=== PATIENT | male | born 1995 | race Caucasian/White ===

== ENCOUNTER → 2017-04-08 | Outpatient (CLI) | payer OTHER ==
--- NOTE | 2017-04-08 16:37 | REP ---
LUMBAR SPINE COMPLETE: 04/08/2017. COMPARISON: None. FINDINGS: Five views are provided. There is very slight levoconvex curve of the upper lumbar spine. Pedicles, spinous and transverse processes intact. SI joints, sacral ala and foramina were intact. Lateral view shows loss of lordosis which may reflect some spasm. There is spondylosis with anterior osteophytes at L1-2 and lower thoracic levels compression deformity of destructive lesion. No spondylolysis or spondylolisthesis. IMPRESSION: 1. Minor degenerative disc changes with tiny spurs at L1-2 without disc space narrowing, compression deformity, spondylolysis or spondylolisthesis. 2. Straightening of the spine may reflect some mild spasm. Signed by Gregorio Lan MD 04/08/2017 04:46 P
== END ==
LOC: M ADAMS 15:28
PROVIDERS: ATTEND Physician Assistant Medical
DX: M54.5 Low back pain (principal)

== ENCOUNTER → 2020-07-31 | Outpatient (REF) | payer OTHER | LOC: M LAB 21:59 | PROVIDERS: ATTEND Physician Assistant Medical | DX: Z11.52 Encounter for screening for COVID-19 (principal) ==

== ENCOUNTER 2022-07-04 22:08 | Emergency (ER) | payer OTHER ==
[~2022-07-04] VITALS: Ht 177.8 cm; Wt 161.6 kg
[2022-07-04 22:09] VITALS: BP 160/90
[2022-07-04] MEDS ORDERED: OXYC1TAB23 PO (22:20)
[2022-07-04] MEDS ORDERED: OMEP40CA5 PO (22:20)
[2022-07-04] MEDS ORDERED: BUPR300T92 PO (22:20)
[2022-07-04] MEDS ORDERED: GABA-282 PO (22:20)
[2022-07-04] MEDS ORDERED: IBUP1TAB6 PO (22:20)
== END 2022-07-05 02:06 | disposition left against medical advice (07) ==
LOC: M ED 22:08
DX: Z53.21 Procedure and treatment not carried out due to patient leaving prior to being seen by health care provider (principal)

== ENCOUNTER → 2023-10-12 | Outpatient (CLI) | payer OTHER ==
[~2023-10-12] MED LIST: BUPR300T92 PO; GABA-282 PO; IBUP1TAB6 PO; OMEP40CA5 PO; OXYC1TAB23 PO
== END ==
LOC: M PLAIMG 09:17
PROVIDERS: ATTEND Physician Assistant
DX: M54.50 Low back pain, unspecified (principal); M48.00 Spinal stenosis, site unspecified

== ENCOUNTER → 2023-12-02 | Outpatient (REF) | payer OTHER ==
[~2023-12-02] MED LIST changes: +BUPR-597 PO; -BUPR300T92 PO
[2023-12-02 19:45] LABS: ALBUMIN 3.6 G/DL (3.2-5.2); ALKALINE PHOSPHATASE 97 U/L (46-116); ALT/SGPT 79 U/L (7.0-40); AST/SGOT 53 U/L (<34); BILIRUBIN,TOTAL 1.1 MG/DL (0.3-1.2); BLOOD UREA NITROGEN 15 MG/DL (9-23); CALCIUM LEVEL 8.7 MG/DL (8.5-10.1); CARBON DIOXIDE LEVEL 27 MMOL/L (20-31); CHLORIDE LEVEL 105 MMOL/L (98-107); CHOLESTEROL LEVEL 217 MG/DL (<200); CREATININE FOR GFR 0.68 MG/DL (0.70-1.30); GLOMERULAR FILTRATION RATE > 60.0 (>60); GLUCOSE, FASTING 127 MG/DL (60-100); HDL CHOLESTEROL 47.1 MG/DL (>40); LDL CHOLESTEROL 142.5 MG/DL (<100); NON-HDL-C 169.9 MG/DL; POTASSIUM SERUM 4.2 MMOL/L (3.5-5.1); SODIUM LEVEL 139 MMOL/L (136-145); TOTAL PROTEIN 7.2 G/DL (5.7-8.2); TRIGLYCERIDES LEVEL 137 MG/DL (<150)
[2023-12-02 19:47] LABS: THYROID STIMULATING HORMONE 2.141 uIU/ML (0.55-4.78); TOTAL 25(OH) VITAMIN D 8.6 NG/ML (20.0-100.0)
[2023-12-02 20:17] LABS: HIV 1&2 SCREEN NEGATIVE (NEGATIVE)
[2023-12-02 20:25] LABS: HEPATITIS C VIRUS ABY INDEX < 0.02 INDEX (<0.8)
[2023-12-02 20:43] LABS: HEMOGLOBIN A1c 6.6 % (4.0-6.0)
[2023-12-02 21:28] LABS: GC DNA AMPLIFICATION NEGATIVE (NEGATIVE)
[2023-12-02 21:49] LABS: Trichomonas vaginalis (AMP) NOT DETECTED (NEGATIVE)
== END ==
LOC: M LAB REF 16:19
PROVIDERS: ATTEND Physician Assistant
DX: Z11.9 Encounter for screening for infectious and parasitic diseases, unspecified (principal); E66.9 Obesity, unspecified; E55.9 Vitamin D deficiency, unspecified

== ENCOUNTER → 2024-02-18 | Outpatient (REF) | payer OTHER ==
[2024-02-19 15:07] LABS: CREATININE, URINE 369.6 MG/DL
== END ==
LOC: M LAB REF 12:16
PROVIDERS: ATTEND Nurse Practitioner Family
DX: E11.9 Type 2 diabetes mellitus without complications (principal)

== ENCOUNTER → 2024-03-16 | Outpatient (CLI) | payer OTHER | LOC: M PAIN 13:00 | PROVIDERS: ATTEND Anesthesiology | DX: M51.16 Intervertebral disc disorders with radiculopathy, lumbar region (principal); G89.29 Other chronic pain; K21.9 Gastro-esophageal reflux disease without esophagitis; E66.01 Morbid (severe) obesity due to excess calories; F43.23 Adjustment disorder with mixed anxiety and depressed mood; I10 Essential (primary) hypertension; E78.00 Pure hypercholesterolemia, unspecified; M47.816 Spondylosis without myelopathy or radiculopathy, lumbar region; E11.9 Type 2 diabetes mellitus without complications; E55.9 Vitamin D deficiency, unspecified; F17.210 Nicotine dependence, cigarettes, uncomplicated; Z79.899 Other long term (current) drug therapy ==

== ENCOUNTER → 2024-04-26 | Outpatient (CLI) | payer OTHER ==
[~2024-04-26] MED LIST changes: +GABA-1172 PO; -GABA-282 PO
== END ==
LOC: M WUC 11:11
PROVIDERS: ATTEND Nurse Practitioner Family
DX: R06.83 Snoring (principal)

== ENCOUNTER → 2024-05-05 | Outpatient (CLI) | payer OTHER ==
[~2024-05-05] MED LIST changes: +ISOVUE-M 300 61% 15ML VIAL As Ordered ONE; +LIDOCAINE 1% SDV 30ML VIAL As Ordered ONE; +dexAMETHasone 10MG/1ML VIAL PRES.FREE As Ordered ONE; +diazePAM 5MG TABLET As Ordered ONE; +oxyCODONE 5MG TAB As Ordered ONE
== END ==
LOC: M PAIN 14:30
PROVIDERS: ATTEND Anesthesiology
DX: M51.16 Intervertebral disc disorders with radiculopathy, lumbar region (principal); G89.29 Other chronic pain; E66.01 Morbid (severe) obesity due to excess calories; I10 Essential (primary) hypertension; E78.00 Pure hypercholesterolemia, unspecified; M47.816 Spondylosis without myelopathy or radiculopathy, lumbar region; E11.9 Type 2 diabetes mellitus without complications; E55.9 Vitamin D deficiency, unspecified; F17.210 Nicotine dependence, cigarettes, uncomplicated; Z68.43 Body mass index [BMI] 50.0-59.9, adult; Z79.811 Long term (current) use of aromatase inhibitors
CPT/HCPCS: 62323; J1100; Q9967

== ENCOUNTER → 2024-10-06 | Outpatient (CLI) | payer OTHER, MEDICAID ==
[~2024-10-06] MED LIST changes: -ISOVUE-M 300 61% 15ML VIAL As Ordered ONE; -LIDOCAINE 1% SDV 30ML VIAL As Ordered ONE; -dexAMETHasone 10MG/1ML VIAL PRES.FREE As Ordered ONE; -diazePAM 5MG TABLET As Ordered ONE; -oxyCODONE 5MG TAB As Ordered ONE
== END ==
LOC: M SLEEP 20:00
PROVIDERS: ATTEND Physician Assistant
DX: G47.33 Obstructive sleep apnea (adult) (pediatric) (principal)

== ENCOUNTER → 2024-12-04 | Outpatient (CLI) | payer OTHER ==
[~2024-12-04] MED LIST changes: -BUPR-597 PO; +BUPR-766 PO
== END ==
LOC: M SLEEP 20:00
PROVIDERS: ATTEND Physician Assistant
DX: G47.33 Obstructive sleep apnea (adult) (pediatric) (principal)

== ENCOUNTER 2025-03-09 11:55 | Emergency (ER) | payer OTHER ==
[~2025-03-09] VITALS: Ht 177.8 cm; Wt 146.1 kg
[2025-03-09] MEDS ORDERED: SEMA2PEN (12:18)
[2025-03-09 13:17] LABS: BASO # 0.0 10^3/uL (0.0-0.2); BASO % 0.2 % (0.0-1.0); EOS # 0.1 10^3/uL (0.0-0.5); EOS % 0.5 % (0.0-3.0); LYMPH # 1.4 10^3/uL (1.5-5.0); LYMPH % 11.9 % (24.0-44.0); MONO # 0.6 10^3/uL (0.0-0.8); MONO % 4.7 % (2.0-8.0); NEUTROPHILS # 9.9 10^3/uL (1.5-8.5); NEUTROPHILS % 82.3 % (36.0-66.0); PLATELET COUNT, AUTOMATED 273 10^3/uL (150-450)
[2025-03-09 13:18] LABS: KETONE, URINE AUTO RFX NEGATIVE (NEGATIVE); LEUKOCYTE ESTERASE UR AUTO RFX NEGATIVE (NEGATIVE); MUCUS, URINE RFX LARGE (NEGATIVE); NITRITE, URINE AUTO RFX NEGATIVE (NEGATIVE); RBC, URINE AUTO RFX TNTC /HPF (0-3); SQUAM EPITHELIAL CELL UR AURFX 1 /HPF (0-6); WBC, URINE AUTO RFX 0 /HPF (0-3)
[2025-03-09 13:52] LABS: ALT/SGPT 34 U/L (7.0-40); AST/SGOT 23 U/L (<34); CALCIUM LEVEL 9.2 MG/DL (8.5-10.1); CARBON DIOXIDE LEVEL 27 MMOL/L (20-31); CHLORIDE LEVEL 106 MMOL/L (98-107); CREATININE FOR GFR 1.11 MG/DL (0.70-1.30); GLOMERULAR FILTRATION RATE > 90.0 (>60); POTASSIUM SERUM 4.5 MMOL/L (3.5-5.1); SODIUM LEVEL 143 MMOL/L (136-145)
[2025-03-09] MEDS: ONDANSETRON 4MG 2ML VIAL IV ONE (14:07)
[2025-03-09] MEDS: NS (Normal Saline) 0.9% 1,000 ML IV ONE (14:07)
[2025-03-09] MEDS: KETOROLAC 30 MG/ML 1 ML VIAL IV ONE (14:08)
[2025-03-09] MEDS ORDERED: TAMS-18 PO (14:56)
[2025-03-09] MEDS ORDERED: ONDA-282 PO (15:01)
[2025-03-09] MEDS ORDERED: KETO-204 PO (15:01)
[2025-03-09 15:04] VITALS: BP 143/88; TEMP 98.4; O2SAT 97
== END 2025-03-09 15:13 | disposition home or self-care (01) ==
LOC: M ED 11:55
DX: N20.0 Calculus of kidney (principal); Z87.442 Personal history of urinary calculi; F17.200 Nicotine dependence, unspecified, uncomplicated; F19.10 Other psychoactive substance abuse, uncomplicated; Z79.899 Other long term (current) drug therapy
CPT/HCPCS: 74176; 80048; 80076; 81001; 83690; 85025; 96361; 96374; 96375; 99284; J1885; J2405

== ENCOUNTER 2025-07-19 09:29 | Emergency (ER) | payer OTHER ==
[~2025-07-19] VITALS: Ht 177.8 cm; Wt 146.8 kg
[~2025-07-19 09:29] MED LIST changes: -IBUP1TAB6 PO; +KETO-204 PO; +ONDA-282 PO; +SEMA2PEN; +SFHIBU600 PO; +TAMS-18 PO
[2025-07-19] MEDS ORDERED: METH-1165 PO (13:25)
[2025-07-19] MEDS ORDERED: MEDR4PAK PO (13:25)
[2025-07-19 13:40] VITALS: BP 134/80; TEMP 97.8; O2SAT 100
== END 2025-07-19 13:43 | disposition home or self-care (01) ==
LOC: M ED 09:29
DX: S76.212A Strain of adductor muscle, fascia and tendon of left thigh, initial encounter (principal); X50.0XXA Overexertion from strenuous movement or load, initial encounter; Y92.9 Unspecified place or not applicable; Y93.9 Activity, unspecified; Y99.9 Unspecified external cause status; K21.9 Gastro-esophageal reflux disease without esophagitis; R73.03 Prediabetes; Z87.442 Personal history of urinary calculi; Z79.4 Long term (current) use of insulin; Z79.899 Other long term (current) drug therapy